=== PATIENT | male | born 1950 | race Two or more races ===

== ENCOUNTER → 2025-02-16 | Outpatient (CLI) | payer OTHER, MEDICAID, SELFPAY ==
--- NOTE | 2025-02-16 09:31 | XR_ITS ---
EXAMINATION: Right femur 2 views TECHNIQUE: AP lateral right femur 2 views Date and time: February 16, 2025, 0902 hours INDICATIONS: Right femur pain 10 days FINDINGS: Mild to moderate narrowing right hip joint No hip or femoral shaft fracture Soft tissue vascular calcification Mild to moderate narrowing medial joint space right knee IMPRESSION: No hip or femoral shaft fracture
== END | disposition home or self-care (01) ==
PROVIDERS: PCP Family Medicine; Referring Provider Family Medicine; Visit Provider Family Medicine
DX: M89.8X5 Other specified disorders of bone, thigh (principal)
CPT/HCPCS: 73552

== ENCOUNTER 2025-03-22 15:35 | Emergency (ER) | payer OTHER, MEDICAID, SELFPAY ==
[2025-03-22 15:36] VITALS: PULSE 76; RESP 18; O2SAT 98
[2025-03-22 15:39] VITALS: BP 109/65; PULSE 72; RESP 17; TEMP 36.3; O2SAT 96
--- NOTE | 2025-03-22 15:59 | PC.NURSE ---
Patient placed in ED bed 11. GCS 14 No signs of acute distress noted. Patient hooked to monitors. VS stable at this time. Pending workup.
[2025-03-22 16:00] VITALS: BP 119/72; PULSE 67; RESP 18; O2SAT 96
--- NOTE | 2025-03-22 16:07 | PD.EDADULT ---
ED General RME/HPI General Chief complaint: General Adult/Misc Complain Stated complaint: ABNORMAL BP Time Seen by Provider: 03/22/25 16:06 Arrival date/time: 03/22/25 15:35 CC: Hypotension HPI patient presents to the ER via EMS who state it was reported hypotension after shower, there initial vital signs and subsequent vital signs show stable blood pressure. Patient is awake alert minimally oriented asking what he is done wrong . Patient denies any fever. No other complaints. Related Data Home Medications ?Medication ?Instructions ?Recorded ?Confirmed alprazolam 1 mg tablet 0.5 mg PO Q8H PRN Anxiety 08/25/22 03/25/23 buspirone 30 mg tablet 15 mg PO TID 08/25/22 03/25/23 gabapentin 100 mg capsule 100 mg PO HS 08/25/22 03/25/23 tamsulosin 0.4 mg capsule 0.4 mg PO BID 08/25/22 03/25/23 acetaminophen 325 mg tablet 650 mg PO Q6H PRN Pain (Scale 03/25/23 03/25/23 (Tylenol) Score 4-6) albuterol sulfate 2.5 mg/3 mL 2.5 mg continuous nebulization Q6H 03/25/23 03/25/23 (0.083 %) solution for nebulization PRN Shortness Of Breath Or Wheezing amlodipine 10 mg tablet 10 mg PO DAILY 03/25/23 03/25/23 atorvastatin 20 mg tablet 20 mg PO QPM 03/25/23 03/25/23 bisacodyl 10 mg rectal suppository 10 mg CA Q72H PRN Constipation 03/25/23 03/25/23 (Dulcolax (bisacodyl)) enoxaparin 30 mg/0.3 mL 30 mg subcut QDAY 03/25/23 03/25/23 subcutaneous syringe (Lovenox) losartan 50 mg tablet 100 mg PO QDAY 03/25/23 03/25/23 magnesium hydroxide 400 mg/5 mL 30 ml PO Q72H PRN Constipation 03/25/23 03/25/23 oral suspension (Milk of Magnesia) metoprolol tartrate 25 mg tablet 25 mg PO BID 03/25/23 03/25/23 multivitamin with minerals 1 tab PO DAILY 03/25/23 03/25/23 pantoprazole 40 mg tablet,delayed 40 mg PO QDAY 03/25/23 03/25/23 release sodium phosphates 19 gram-7 118 ml CA Q72H 03/25/23 03/25/23 gram/118 mL enema (Fleet Enema) spironolactone 50 mg tablet 50 mg PO BID 03/25/23 03/25/23 Allergies Allergy/AdvReac Type Severity Reaction Status Date / Time No Known Allergies Allergy Verified 08/25/22 15:46 Review of Systems Review of Systems Narrative Review of Systems: GEN: No fever, no chills, no weight loss EYES: No discharge, no visual changes, no pain HEENT: No ear pain, no congestion, no sore throat PULM: No shortness of breath, no cough, no congestion CV: No chest pain, no dyspnea on exertion, no palpitations GI: No nausea, no vomiting, no diarrhea, no pain, no constipation : No frequency, no urgency, no dysuria MUSC/SKEL: No joint pain, no back pain SKIN: No rash PSYCH: No hallucinations, no depression HEME/LYMPH: No easy bleeding or bruising tendencies NEURO: No weakness, no headache Past Medical History Past Medical History NEUROLOGIC: Positive Neurological Disorders, Cerebrovascular Accident, Transient Ischemic Attacks (TIA), Dementia, Seizures and Maher's Palsy CARDIAC: Positive Cardiac Disorders, Coronary Artery Disease, Atherosclerotic Heart Disease, Peripheral Vascular Disease, Hypertension and Hypotension; Negative Congestive Heart Failure RESPIRATORY: Positive Sleep Apnea; Negative Chronic Obstructive Pulmonary Disease (COPD) or Asthma GASTROINTESTINAL: Positive Gastrointestinal Disorders GENITOURINARY: Positive Genitourinary Disorders and Neurogenic Bladder; Negative Renal Disease MUSCULOSKELETAL: Negative Musculoskeletal Disorders ENT: Positive Cataracts ENDOCRINE: Positive Endocrine Disorders and Diabetes Mellitus Type 2; Negative Diabetes Mellitus Type 1 HEMATOLOGIC: Negative Blood Disorders or Sickle Cell Disease PSYCHO/SOCIAL: Positive Depression and Anxiety OTHER HISTORY: Positive Falls; Negative Blood Transfusions, Blood Transfusion Reaction, Anesthesia Reactions or Cancer Family History FAMILY HISTORY: Positive Family Cardiac Disorders Surgical History SURGICAL: Positive Coronary Stent, Nose Surgery and Joint Replacement Social History SMOKING STATUS: Never smoker SECOND HAND EXPOSURE: No SUBSTANCE USE: does not use OCCUPATION: Retired Realestate agent, 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 ED Exam Narrative Physical exam: [General: Obese not in any acute distress Head normocephalic HEENT: Within acceptable limits Neck is supple nontender Chest equal chest rise nontender to palpation Respiratory: Clear to auscultation no wheezes crackles or rubs CV: Rate rhythm is regular no murmurs rubs or clicks Abdomen is distended secondary to body habitus soft nontender no masses positive bowel sounds all 4 quadrants Back: No CVA tenderness no spinous process tenderness from cervical spine thoracic and lumbar spine Skin: Intact no petechiae rash induration ulceration or crepitus Extremities: Moving all extremity against resistance cap refill less than 2 seconds neurosensory intact Neuro: Awake alert oriented x1, self, Glascow coma 15 no focal deficits] Course Quality Measures none Orders Category Date Time Status CBC Stat Lab 03/22/25 16:35 Completed CMP [Comprehensive Metabolic Panel] Stat Lab 03/22/25 16:35 Completed Vital Signs Vital signs: Vital Signs Temperature 97.3 F 03/22/25 15:39 Pulse Rate 72 03/22/25 15:39 Respiratory Rate 17 03/22/25 15:39 Blood Pressure 109/65 03/22/25 15:39 Pulse Oximetry (%) 96 03/22/25 15:39 Discharge Plan Plan Patient Disposition: HOME (Self Care) Patient condition on transfer: Stable Prescriptions/Referrals Prescriptions/Med Rec: No Action alprazolam 1 mg tablet 0.5 mg PO Q8H PRN (Reason: Anxiety) Patient Comments: TAKE 1 TABLET BY MOUTH TWICE A DAY gabapentin 100 mg capsule 100 mg PO HS Patient Comments: TAKE 1 CAPSULE (100 MG) BY MOUTH AT BEDTIME tamsulosin 0.4 mg capsule 0.4 mg PO BID Patient Comments: TAKE 1 CAPSULE BY MOUTH TWICE A DAY buspirone 30 mg tablet 15 mg PO TID Patient Comments: TAKE 1 TABLET BY MOUTH EVERY DAY AT BEDTIME NEEDED FOR NERVES losartan 50 mg Tablet 100 mg PO QDAY acetaminophen [Tylenol] 325 mg Tablet 650 mg PO Q6H PRN (Reason: Pain (Scale Score 4-6)) atorvastatin 20 mg Tablet 20 mg PO QPM albuterol sulfate 2.5 mg /3 mL (0.083 %) Solution For Nebulization 2.5 mg continuous nebulization Q6H PRN (Reason: Shortness Of Breath Or Wheezing) magnesium hydroxide [Milk of Magnesia] 400 mg/5 mL Suspension 30 ml PO Q72H PRN (Reason: Constipation) amlodipine 10 mg tablet 10 mg PO DAILY bisacodyl [Dulcolax (bisacodyl)] 10 mg Suppository 10 mg CA Q72H PRN (Reason: Constipation) pantoprazole 40 mg Tablet,Delayed Release (Dr/Ec) 40 mg PO QDAY Fleet Enema 19-7 gram/118 mL Enema 118 ml CA Q72H multivitamin with minerals Tablet 1 tab PO DAILY spironolactone 50 mg Tablet 50 mg PO BID enoxaparin [Lovenox] 30 mg/0.3 mL Syringe 30 mg SUBCUT QDAY metoprolol tartrate 25 mg Tablet 25 mg PO BID Referrals: No Primary/Family,Physician [Primary Care Provider] - In 1 week Problem List Clinical Impression: Hypotension Patient/Caregiver Discharge Instructions Education Materials: Hypotension Dc Print Language: Macanese Stand Alone Forms: [employer] Award Info., Patient Portal Info Letter PA/PLUMBER'S ASSISTANT Supervising Physician PA/PLUMBER'S ASSISTANT Supervising Physician: Giovanny Armstrong ENP MDM Clinical Information Provided by: patient and EMS Medical Records reviewed [facility] and EMS Meds/Rx considered, not ordered None Labs/Rad/Tests considered, not ordered None Chronic Illness/Social Conditions Explain: Subarachnoid hemorrhage dysphagia type 2 diabetes
[2025-03-22 17:05] LABS: Basophils # (Auto) 0.0 Thou/mm3 (0.0-0.2); Basophils % (Auto) 0 % (0-2.5); Eosinophils # (Auto) 0.2 Thou/mm3 (0.0-0.5); Eosinophils % (Auto) 3 % (0-10); Hematocrit 30.3 % (41.0-53.0); Hemoglobin 9.9 g/dL (13.5-16.0); Immature Granulocytes Auto 0.16 Thou/mm3 (0.00-0.00); Lymphocytes # (Auto) 1.5 Thou/mm3 (1.0-4.8); Lymphocytes % (Auto) 19 % (10-50); Mean Corpuscular HGB Conc 32.7 g/dl (31.0-37.0); Mean Corpuscular Hemoglobin 29.7 pg (25.0-35.0); Mean Corpuscular Volume 91 fL (80-100); Monocytes # (Auto) 1.1 Thou/mm3 (0.0-0.8); Monocytes % (Auto) 14 % (0-12); Neutrophils # (Auto) 5.0 Thou/mm3 (1.8-7.7); Neutrophils % (Auto) 63 % (37-80); Nucleated Red Blood Cell # 0.00 Thou/mm3 (0.00-0.00); Nucleated Red Blood Cell % 0 /100 WBC (0); Platelet Count 171 Thou/mm3 (140-440); RDW Standard Deviation 41.4 fL (35.1-43.9); Red Blood Count 3.33 Miln/mm3 (4.50-5.90); White Blood Count 7.9 Thou/mm3 (3.8-10.6)
[2025-03-22 17:18] LABS: Alanine Aminotransferase 10 U/L (10-49); Albumin, Serum 4.2 gm/dL (3.4-4.8); Albumin/Globulin Ratio 1.7 (1.2-2.2); Alkaline Phosphatase 77 U/L (46-116); Anion Gap 10 (7-16); Aspartate Amino Transferase 12 U/L (0-34); BUN/Creatinine Ratio 20 Ratio (12-20); Bilirubin,Total 0.3 mg/dL (0.3-1.2); Blood Urea Nitrogen 42 mg/dL (9-23); Calcium 9.0 mg/dL (8.3-10.6); Calcium (Corrected) 9.0 mg/dL (8.5-10.1); Carbon Dioxide 21.9 mMol/L (20.0-31.0); Chloride 107 mMol/L (98-107); Creatinine (Component) 2.1 mg/dL (0.6-1.3); Globulin 2.5 gm/dL (2.3-3.5); Glucose 129 mg/dL (74-106); Osmolality,Calculated 290 (275-295); Potassium 5.3 mMol/L (3.4-5.1); Sodium 139 mMol/L (136-145); Total Protein 6.7 gm/dL (5.7-8.2); eGFR 32 See Note
[2025-03-22 17:53] VITALS: BP 115/64; PULSE 66; RESP 17; TEMP 36.6; O2SAT 98
[2025-03-22 19:58] VITALS: BP 127/76; PULSE 76; RESP 20; O2SAT 95
== END 2025-03-22 20:08 | disposition home or self-care (01) ==
PROVIDERS: Registered Nurse General Practice; Emergency Provider Family Medicine
DX: I95.9 Hypotension, unspecified (principal)
CPT/HCPCS: 36415; 80053; 85025; 99282